=== PATIENT | male | born 1995 | race Caucasian/White ===

== ENCOUNTER 2018-10-05 19:00 | Emergency (ER) | payer OTHER ==
[2018-10-05 19:40] VITALS: BP 100/63; PULSE 65; TEMP 98.1; BMI 20.5
[2018-10-05] MEDS ORDERED: CEPHALEXIN MONOHYDRATE 500 MG CAPSULE (UD) PO ONE (20:38)
[2018-10-05] MEDS ORDERED: CEPHALEXIN MONOHYDRATE 500 MG CAPSULE (UD) ONE (20:40)
--- NOTE | 2018-10-05 20:41 | PDOC ---
Documentation entered by Betty Amezcua SCRIBE, acting as scribe for Taylor German MD. Taylor German MD: This documentation has been prepared by the Goldie pickard Andrys, SCRIBE, under my direction and personally reviewed by me in its entirety. I confirm that the documentation accurately reflects all work, treatment, procedures, and medical decision making performed by me. History of Present Illness - General Chief Complaint: Injury Stated Complaint: RIGHT GREAT TOE INJURY Time Seen by Provider: 10/05/18 19:24 History Source: Patient Exam Limitations: No Limitations - History of Present Illness Initial Comments: 10/05/18 19:32 The patient is a 23 year old male with no significant past medical history who presents to the ED s/p injury earlier today. Patient states he dropped a subwoofer box on his right foot and comes into the ED with a laceration to his right big toe. Denies any other symptoms. PAST MEDICAL HISTORY: no significant history PAST SURGICAL HISTORY: no significant history FAMILY HISTORY: no pertinent history SOCIAL HISTORY: Pt lives with family and is employed. MEDICATIONS: reviewed ALLERGIES: As per nursing notes General: No fevers or chills, no weakness, no weight loss HEENT: No change in vision. No sore throat,. No ear pain Cardiovascular: No chest pain or shortness of breath Respiratory:No cough, or wheezing. Gastrointestinal: no nausea, vomiting, diarrhea or constipation, No rectal bleeding Genitourinary: No dysuria, hematuria, or frequency Musculoskeletal: No joint or muscle pain or swelling Neurologic: No headache, vertigo, dizziness or loss of consciousness Psychiatric: nor depression Skin: + right toe laceration. No rashes or easy bruising Endocrine: no increased thirst or abnormal weight change Allergic: no skin or latex allergy All other systems reviewed and normal GENERAL: The patient is awake, alert, and fully oriented, in no acute distress. HEAD: Normal with no signs of trauma. EYES: Pupils equal, round and reactive to light, extraocular movements intact, sclera anicteric, conjunctiva clear. EXTREMITIES: + There is tenderness and ecchymosis over the distal phalanges with small amount of blood oozing from underneath the base of the toenail. NEUROLOGICAL: Normal speech, normal gait. PSYCH: Normal mood, normal affect. SKIN: Warm, Dry, normal turgor, no rashes or lesions noted. 10/05/18 20:37 Assessment and plan: This is a 23-year-old male who dropped a speaker on his right foot/toe resulting in trauma and laceration of the right big toe. X-ray showed a comminuted fracture of the distal portion of the distal phalanx. Patient toe was cleaned and dressing applied. Patient given Keflex as it is an open fracture discharged home will follow-up with his primary care doctor as needed. Past History - Past Medical History Allergies/Adverse Reactions: Allergies Allergy/AdvReac Type Severity Reaction Status Date / Time No Known Allergies Allergy Verified 10/05/18 19:24 Home Medications: Ambulatory Orders Cephalexin [Keflex] 500 mg PO QID #28 capsule 10/05/18 *Physical Exam - Vital Signs Last Vital Signs Temp Pulse Resp BP Pulse Ox 98.1 F 65 16 100/63 100 10/05/18 19:22 10/05/18 19:22 10/05/18 19:22 10/05/18 19:22 10/05/18 19:22 ED Treatment Course - RADIOLOGY Radiology Studies Ordered: Category Date Time Status TOE(S) RIGHT [RAD] Stat Radiology 10/05/18 19:29 Taken *DC/Admit/Observation/Transfer Diagnosis at time of Disposition: Fracture of right great toe Qualifiers: Encounter type: initial encounter Fracture type: closed Phalanx: distal Fracture alignment: nondisplaced Qualified Code(s): S92.424A - Nondisplaced fracture of distal phalanx of right great toe, initial encounter for closed fracture - Discharge Dispostion Disposition: HOME Condition at time of disposition: Good Decision to Admit order: No - Referrals - Patient Instructions Additional Instructions: Tylenol or Motrin as needed for pain Keep the toe clean and reapply bacitracin and a dressing until no further oozing or bleeding from under the toenail. Return to the emergency department immediately with ANY new, persistent or worsening symptoms. Continue any medications as previously prescribed by your physician. You should follow up with your primary doctor as soon as possible regarding today's emergency department visit. . Please make sure your doctor reviews the results of your emergency evaluation. Thank you for coming to the Emergency Department today for your care. It was a pleasure to see you today. Please note that your evaluation is INCOMPLETE until you follow-up with your doctor. - Post Discharge Activity
== END 2018-10-05 20:48 | disposition home or self-care (01) ==
LOC: FER 19:00
DX: S92.424A Nondisplaced fracture of distal phalanx of right great toe, initial encounter for closed fracture (principal); W20.8XXA Other cause of strike by thrown, projected or falling object, initial encounter; Y93.89 Activity, other specified; Y92.89 Other specified places as the place of occurrence of the external cause
CPT/HCPCS: 73660-TC-FY; 99282-25